=== PATIENT | female | born 1945 | race Caucasian/White ===

== ENCOUNTER 2018-03-13 19:52 | Emergency (ER) | payer MEDICARE, OTHER ==
[2018-03-13] MEDS ORDERED: traMADol TAB* 50 MG PO ONE (20:53)
--- NOTE | 2018-03-13 21:03 | ED ---
Upper Extremity Pain - HPI Summary HPI Summary: A 72 y/o female presents to the ED c/o right wrist pains s/p fall reaching 1/10 in severity. As per triage, "Pt c/o right hand/forearm pain. States she was walking backwards when she accidentally fell. States she attempted to catch herself and landed on her right hand. No obvious deformity noted. Slight swelling present. Fingers warm to touch and mobile. Strong right radial pulse palpated with capillary refill <2 seconds. Pt applied ice prior to arrival". According to the patient, she was walking backwards when she accidentally tipped over and fell. She broke the fall with her right hand and currently experiences right wrist pain. No other noted injuries. - History of Current Complaint Chief Complaint: EDExtremityUpper Stated Complaint: RT HAND INJURY Time Seen by Provider: 03/13/18 20:40 Hx Obtained From: Patient Mechanism Of Injury: Fall From A Standing Position Onset/Duration: Started Hours Ago, Still Present Timing: Constant Severity Initially: Mild - 1/10 Severity Currently: Mild - 1/10 Pain Location: Wrist - Right Aggravating Factor(s): Nothing Alleviating Factor(s): Nothing Associated Signs & Symptoms: Positive: Negative - Allergies/Home Medications Allergies/Adverse Reactions: Allergies Allergy/AdvReac Type Severity Reaction Status Date / Time No Known Allergies Allergy Verified 03/13/18 19:57 PMH/Surg Hx/FS Hx/Imm Hx Endocrine/Hematology History: Denies: Hx Diabetes Cardiovascular History: Reports: Hx Hypertension - pre - Surgical History Surgery Procedure, Year, and Place: No prior surgeries. Infectious Disease History: No Infectious Disease History: Denies: Traveled Outside the [place] in Last 30 Days - Family History Known Family History: Positive: Hypertension, Diabetes - Social History Alcohol Use: None Substance Use Type: Reports: None Smoking Status (MU): Never Smoked Tobacco Review of Systems Negative: Fever Positive: Other - POSITIVE: Right wrist pain All Other Systems Reviewed And Are Negative: Yes Physical Exam - Summary Physical Exam Summary: VITAL SIGNS: Reviewed. GENERAL: Patient is a well-developed and nourished female who is lying comfortable in the stretcher. Patient is not in any acute respiratory distress. HEAD AND FACE: No signs of trauma. No ecchymosis, hematomas or skull depressions. No sinus tenderness. EYES: PERRLA, EOMI x 2, No injected conjunctiva, no nystagmus. EARS: Hearing grossly intact. Ear canals and tympanic membranes are within normal limits. MOUTH: Oropharynx within normal limits. NECK: Supple, trachea is midline, no adenopathy, no JVD, no carotid bruit, no c- spine tenderness, neck with full ROM. CHEST: Symmetric, no tenderness at palpation LUNGS: Clear to auscultation bilaterally. No wheezing or crackles. CVS: Regular rate and rhythm, S1 and S2 present, no murmurs or gallops appreciated. ABDOMEN: Soft, non-tender. No signs of distention. No rebound no guarding, and no masses palpated. Bowel sounds are normal. EXTREMITIES: FROM in all major joints, no cyanosis or clubbing. Swelling and tenderness over right wrist, moreover radial side. ROM secondary to pain. ROM neurovascular exam intact. NEURO: Alert and oriented x 3. No acute neurological deficits. Speech is normal and follows commands. SKIN: Dry and warm Triage Information Reviewed: Yes Vital Signs On Initial Exam: Initial Vitals Temp Pulse Resp BP Pulse Ox 98.1 F 58 16 147/59 96 03/13/18 19:54 03/13/18 19:54 03/13/18 19:54 03/13/18 19:54 03/13/18 19:54 Vital Signs Reviewed: Yes Procedures - Splinting Right Wrist Location: Right Wrist Splint. Hand-Made Type: orthoglass Splint: sugar-tong Pre-Proc Neuro Vasc Exam: normal Post-Proc Neuro Vasc Exam: normal Diagnostics - Vital Signs Vital Signs Temp Pulse Resp BP Pulse Ox 03/13/18 19:54 98.1 F 58 16 147/59 96 - Laboratory Lab Statement: Any lab studies that have been ordered have been reviewed, and results considered in the medical decision making process. - Radiology HAND XR Radiology Interpretation Completed By: ED Physician - Minimally displaced distal wrist fracture. Pending official report. WRIST XR Radiology Interpretation Completed By: ED Physician - Minimally displaced distal wrist fracture. Pending official report. Course/Dx - Course Course Of Treatment: A 72 y/o female presents to the ED c/o right wrist pains s/ p fall reaching 1/10 in severity. A Hand and Wrist XR revealed a minimally displaced distal radial fracture. Patient was placed in a right wrist split using orthoglass and sugar-tong. NV exam was intact pre and post procedure. In the ED course, the patient received Ultram. Patient will be discharged with a diagnosis of distal radial fracture. Patient will be sent home with Ultram. Patient is to follow up with Orthopedics tomorrow. Patient is agreeable with this plan. - Diagnoses Provider Diagnoses: Distal radial fracture Discharge - Sign-Out/Discharge Documenting (check all that apply): Patient Departure - DISCHARGE - Discharge Plan Condition: Stable Disposition: HOME Prescriptions: traMADol TAB* [Ultram*] 50 mg PO Q6HR PRN #14 tab MDD 4 PRN Reason: Pain Patient Education Materials: Wrist Fracture in Adults (ED), Splint Care (ED) Referrals: Nazia Acevedo MD [Medical Doctor] - 1 Day Additional Instructions: FOLLOW UP WITH ORTHOPEDICS TOMORROW. TAKE MEDICATION PRESCRIBED. RETURN TO ED FOR ANY NEW OR WORSENING SYMPTOMS. - Attestation Statements Document Initiated by Scribe: Yes Documenting Scribe: Flip Zaidi Provider For Whom Scribe is Documenting (Include Credential): Roxanna Humphrey Scribbart Attestation: Flip Stockton, scribed for Roxanna Humphrey on 03/13/18 at [id number].
[2018-03-13 21:45] VITALS: BP 137/74
--- NOTE | 2018-03-14 08:10 | RAD ---
INDICATION: Right hand and wrist pain after injury COMPARISON: None. TECHNIQUE: 4 views of the right hand and 3 views of the right wrist were obtained. FINDINGS: There is a minimally impacted horizontally oriented fracture at the distal right radius just proximal from the articulating surface. The fracture line is oriented horizontally relative to the axis of the bone . Degenerative changes are noted at the right thumb metacarpal and trapezium joint including mild sclerotic bony remodeling. Remaining visualized bones are otherwise intact and appropriately aligned. IMPRESSION: Impacted distal right radius fracture. R0
== END 2018-03-13 21:44 | disposition home or self-care (01) ==
LOC: ED 19:52
DX: S52.501A Unspecified fracture of the lower end of right radius, initial encounter for closed fracture (principal); M25.531 Pain in right wrist; W19.XXXA Unspecified fall, initial encounter; Y92.9 Unspecified place or not applicable
CPT/HCPCS: 99282; A9270-GY